=== PATIENT | male | born 1955 | race Caucasian/White ===

== ENCOUNTER 2018-02-22 12:07 | Emergency (ER) | payer BC ==
--- NOTE | 2018-02-22 13:39 | ED Physician Documentation ---
PD HPI ABD PAIN - Stated complaint Stated Complaint: BACK PX - Chief complaint Chief Complaint: Back Pain - History obtained from History obtained from: Patient - History of Present Illness Timing - onset: How many days ago (2 1/2) Timing - duration: Days Timing - details: Gradual onset, Still present, Waxing and waning Quality: Aching, Pain Location: Other (lower thoracic back, not changed with breathing nor position. No dyspnea.) Radiation: Upper back. No: Chest, Improved by: No: Eating, Vomiting, BM Worsened by: Position (lying down is worse). No: Eating, Moving, Breathing Associated symptoms: Other (burping and flatuance.) Similar symptoms before: Has not had sx before Recently seen: Not recently seen Review of Systems Ten Systems: 10 systems reviewed and negative Constitutional: denies: Fever, Chills Nose: denies: Rhinorrhea / runny nose, Congestion Throat: denies: Sore throat Cardiac: reports: Chest pain / pressure. denies: Palpitations, Pedal edema Respiratory: denies: Cough GI: reports: Abdominal Pain (epigastric to chest). denies: Nausea, Vomiting, Constipation, Diarrhea : denies: Dysuria, Frequency Skin: denies: Rash, Lesions Neurologic: denies: Generalized weakness, Focal weakness, Numbness, Near syncope PD PAST MEDICAL HISTORY - Past Medical History Cardiovascular: None Respiratory: None Neuro: None Endocrine/Autoimmune: None GI: None - Present Medications Home Medications: Ambulatory Orders Medication Instructions Recorded Confirmed Famotidine [Pepcid] 20 mg PO ONCE #30 tablet 02/22/18 Lidocaine Viscous 2% [Xylocaine 5 ml PO Q4H PRN #1 bottle 02/22/18 Viscous 2%] - Allergies Allergies/Adverse Reactions: Allergies Allergy/AdvReac Type Severity Reaction Status Date / Time No Known Drug Allergies Allergy Verified 02/22/18 12:21 PD ED PE NORMAL - Vitals Vital signs reviewed: Yes - General General: Alert and oriented X 3, No acute distress, Well developed/nourished - HEENT HEENT: Pharynx benign - Neck Neck: Supple, no meningeal sign, No adenopathy - Cardiac Cardiac: RRR, No murmur - Respiratory Respiratory: Clear bilaterally - Abdomen Abdomen: Normal bowel sounds, Soft, Non tender, Non distended, No organomegaly - Male Male : Deferred - Rectal Rectal: Deferred - Back Back: No CVA TTP - Derm Derm: Normal color, Warm and dry - Extremities Extremities: No tenderness to palpate, Normal ROM s pain, No edema, No calf tenderness / cord - Neuro Neuro: Alert and oriented X 3, No motor deficit, Normal speech Results - Vitals Vitals: Oxygen O2 Source Room air - EKG (time done) 14:27 Rate: Rate (enter#) (67) Rhythm: NSR [place]: Normal Intervals: Normal CO QRS: Normal Ischemia: Normal ST segments. No: ST elevation c/w ischemia, ST depression - Labs Labs: Laboratory Tests 02/22/18 02/22/18 02/22/18 14:21 14:21 14:21 WBC 15.8 H RBC 6.14 H Hgb 18.8 H Hct 55.2 H MCV 89.9 MCH 30.5 MCHC 34.0 RDW 14.3 Plt Count 267 MPV 8.0 Neut # (Auto) 12.3 H Lymph # (Auto) 1.8 Pettis # (Auto) 1.6 H Eos # (Auto) 0.1 Baso # (Auto) 0.1 Absolute Nucleated RBC 0.01 Nucleated RBC % 0.1 D-Dimer Sodium 135 Potassium 3.6 Chloride 97 L Carbon Dioxide 26 Anion Gap 12.0 BUN 17 Creatinine 1.3 H Estimated GFR (MDRD) 56 L Glucose 114 H Calcium 9.5 Total Bilirubin 1.4 H AST 22 ALT 37 Alkaline Phosphatase 62 Troponin I < 0.04 B-Natriuretic Peptide Total Protein 8.6 H Albumin 4.1 Globulin 4.5 H Albumin/Globulin Ratio 0.9 L Lipase 38 02/22/18 02/22/18 14:21 14:21 WBC RBC Hgb Hct MCV MCH MCHC RDW Plt Count MPV Neut # (Auto) Lymph # (Auto) Pettis # (Auto) Eos # (Auto) Baso # (Auto) Absolute Nucleated RBC Nucleated RBC % D-Dimer < 200.0 L Sodium Potassium Chloride Carbon Dioxide Anion Gap BUN Creatinine Estimated GFR (MDRD) Glucose Calcium Total Bilirubin AST ALT Alkaline Phosphatase Troponin I B-Natriuretic Peptide 49 Total Protein Albumin Globulin Albumin/Globulin Ratio Lipase - Rads (name of study) chest xray Radiology: Prelim report reviewed (normal), EMP read contemporaneously PD MEDICAL DECISION MAKING - ED course Complexity details: reviewed results, re-evaluated patient (he did get considerable relief with GI cocktail and labs/CXR/ECG are good, so sounding like GI cause of the symptoms. ), considered differential, d/w patient - Sepsis Event Vital Signs: Oxygen O2 Source Room air Departure - Departure Disposition: 01 Home, Self Care Clinical Impression: Acute thoracic back pain Qualifiers: Back pain laterality: unspecified Qualified Code(s): M54.6 - Pain in thoracic spine Gastritis Qualifiers: Gastritis type: unspecified gastritis Chronicity: acute Gastritis bleeding: without bleeding Qualified Code(s): K29.00 - Acute gastritis without bleeding Condition: Stable Record reviewed to determine appropriate education?: Yes Instructions: ED Neck Back Pain General Follow-Up: Ricki Sanz MD [Primary Care Provider] - Prescriptions: Famotidine [Pepcid] 20 mg PO ONCE #30 tablet Lidocaine Viscous 2% [Xylocaine Viscous 2%] 5 ml PO Q4H PRN #1 bottle PRN Reason: Pain Comments: Your EKG and chest x-ray are normal. Your blood tests do not show any signs of heart failure, heart attack, blood clots, pneumonia, collapsed lung, other significant causes. Also no signs of gallbladder or pancreatic problems. At this point I presume It may be some gastritis and irritated stomach. Use Famotidine once or twice daily for the first week and then daily for another week or 2 to reduce stomach acids. Add antacid such as Maalox or Mylanta and you can add in the lidocaine to help if needed. Use Tylenol if needed for pains. Follow-up with your primary care this coming week if not improving. Return if other symptoms develop such as fever, cough, rash, abdominal pain, other concerns. Discharge Date/Time: 02/22/18 16:19
[2018-02-22] MEDS ORDERED: LIDOCAINE VISCOUS 2% 15 ML UDC MM STA (14:12)
[2018-02-22] MEDS ORDERED: MAG HYDROX/AL HYDROX/SIMETH 30 ML UDC PO STA (14:12)
[2018-02-22] MEDS ORDERED: FAMOTIDINE 20 MG TABLET PO STA (14:12)
[2018-02-22 14:30] LABS: BASOPHILS # (AUTO) 0.1 10^3/uL (0.0-0.1); BASOPHILS % (AUTO) 0.4 %; EOSINOPHILS # (AUTO) 0.1 10^3/uL (0.0-0.7); EOSINOPHILS % (AUTO) 0.5 %; HGB - HEMOGLOBIN 18.8 g/dL (14.0-18.0); LYMPHOCYTES # (AUTO) 1.8 10^3/uL (1.5-3.5); LYMPHOCYTES % (AUTO) 11.5 %; MEAN CORPUSCULAR HEMOGLOBIN 30.5 pg (27.0-31.0); MEAN CORPUSCULAR VOLUME 89.9 fL (80.0-94.0); MONOCYTES # (AUTO) 1.6 10^3/uL (0.0-1.0); MONOCYTES % (AUTO) 9.9 %; NEUTROPHILS # (AUTO) 12.3 10^3/uL (1.5-6.6); NEUTROPHILS % (AUTO) 77.7 %; PLT - PLATELET COUNT 267 10^3/uL (130-450); RED BLOOD COUNT 6.14 10^6/uL (4.70-6.10); RED CELL DISTRIBUTION WIDTH 14.3 % (12.0-15.0); WHITE BLOOD COUNT 15.8 x10^3/uL (4.8-10.8)
[2018-02-22 14:44] LABS: ALBUMIN 4.1 g/dL (3.2-5.5); ALBUMIN/GLOBULIN RATIO 0.9 (1.0-2.2); BILIRUBIN,TOTAL 1.4 mg/dL (0.2-1.0); CALCIUM 9.5 mg/dL (8.5-10.3); CREATININE 1.3 mg/dL (0.6-1.2); TOTAL PROTEIN 8.6 g/dL (6.7-8.2)
--- NOTE | 2018-02-22 14:59 | XRAY Report ---
EXAM: CHEST RADIOGRAPHY EXAM DATE: 02/22/2018 02:44 PM. CLINICAL HISTORY: Thoracic back pain. COMPARISON: None. TECHNIQUE: 2 views. FINDINGS: Lungs/Pleura: No focal opacities evident. No pleural effusion. No pneumothorax. Normal volumes. Mediastinum: Heart and mediastinal contours are unremarkable. Other: None. IMPRESSION: Negative chest. [facility] Referring Provider Line: [phone] SITE ID: [id number]
[2018-02-22 16:19] VITALS: BP 116/80
== END 2018-02-22 16:19 | disposition home or self-care (01) ==
LOC: ED 12:07
DX: M54.6 Pain in thoracic spine (principal); K29.00 Acute gastritis without bleeding
CPT/HCPCS: 36415; 71046; 80053; 83690; 83880; 84484; 85025; 85379; 93005; 99283; 99284; A9270